=== PATIENT | female | born 1990 | race Caucasian/White ===

== ENCOUNTER 2024-03-01 22:06 | Emergency (ER) | payer OTHER, SELFPAY ==
[2024-03-01 22:14] VITALS: BP 180/116
[2024-03-01 22:32] LABS: % Basophils 0.8 % (0-2); % Eosinophils 3.4 % (0-6); % Immature Granulocytes 0.3 % (0-0.5); % Monocytes 5.7 % (1.7-9.3); % Neutrophils 45.8 % (42.2-75.2); Absolute Basophils 0.1 10^3/uL (0-0.2); Absolute Eosinophils 0.4 10^3/uL (0-0.7); Absolute Lymphocytes 5.2 10^3/uL (1.2-3.4); Absolute Monocytes 0.7 10^3/uL (0.1-0.6); Absolute Neutrophils 5.4 10^3/uL (1.4-6.5); Hematocrit 40.9 % (37.0-47.0); Hemoglobin 14.6 g/dL (12.0-16.0); Mean Corp Hgb Conc. 35.7 g/dL (33.0-37.0); Mean Corpuscular Hgb 30.1 pg (27.0-31.0); Mean Corpuscular Volume 84.3 fL (81.0-99.0); Mean Platelet Volume 10.8 fL (7.4-10.4); Nucleated Red Blood Cells % 0 %; Platelet Count 353 10^3/uL (130-400); Red Blood Cell Count 4.85 10^6/uL (4.20-5.40); Red Cell Dist. Width 12.3 % (11.5-14.5); White Blood Cell Count 11.8 10^3/uL (4.8-10.8)
[2024-03-01 22:45] LABS: ALT (SGPT) 24 U/L (0-35); AST (SGOT) 27 U/L (14-36); Albumin 4.9 g/dl (3.5-5.0); Alkaline Phosphatase 67 U/L (38-126); Blood Urea Nitrogen 11 mg/dl (7-17); Calcium 10.2 mg/dl (8.4-10.2); Carbon Dioxide 26 mmol/L (22-30); Chloride 101 mmol/L (98-107); Glucose 110 mg/dl (70-99); Potassium 3.7 mmol/L (3.5-5.1); Sodium 140 mmol/L (135-145); Total Bilirubin 0.4 mg/dl (0.2-1.3); Total Protein 7.5 g/dl (6.3-8.2); eGFR > 60.00
[2024-03-02 00:52] VITALS: BP 146/93; BP 150/92; BP 166/84; PULSE 72; PULSE 79; PULSE 87
[2024-03-02 01:00] VITALS: BP 135/78
--- NOTE | 2024-03-02 01:35 | ED.GENMED ---
History of Present Illness
General
Chief Complaint: Fainting Sensation
Source: patient
Exam Limitations: none
Time Seen by Provider: 03/02/24 01:25
Nursing documentation reviewed up to this point in time: agreed with
History of Present Illness
History of Present Illness:
33-year-old female with past medical history of hypertension, von Willebrand's disease who presents to the emergency department for evaluation of headache. Patient reports onset of symptoms while she was laying in bed sarah reports that she
was laying on her right side and she began having a sharp pain behind her left ear. She says that she started to feel muffled/hearing loss on the left. She says that she began to get dizzy and lightheaded and felt as if she might faint although
she did not pass out. She called EMS to come to the hospital. Since arriving in the hospital she says that her symptoms have improved but she still has some soreness in the left mastoid region. She does note that she has been having issues with
allergies recently and is on Flonase. She denies any change in her vision. She denies any weakness or numbness in her extremities. She denies any neck pain. She denies any nausea/vomiting. Denies any chest pain, palpitations. Denies any other
complaints. She was noted to be markedly hypertensive in triage�she has a known history of hypertension, was started on hydrochlorothiazide a week ago.
Review of Systems
Review of Systems
All Other Systems: ROS reviewed and negative except as documented in HPI and ROS
Constitutional: Denies fever
Respiratory: Denies trouble breathing
Cardiac: Denies chest pain
ABD/GI: Denies abdominal pain, nausea or vomiting
: Denies flank pain
Musculoskeletal: Denies neck pain or back pain
Neurological: Reports dizzy and headache; Denies weakness or numbness
Phy Exam
Physical Exam
Physical Exam:
General: Awake, alert, oriented x3; no acute distress
Head: Normocephalic, atraumatic
Eyes: Conjunctiva normal, EOMI, pupils equal round and reactive to light bilaterally, optic disc appears normal bilaterally on funduscopy
Ears: TMs clear bilaterally�with intention of the left ear she has no reproducible tenderness or skin changes in the region of the mastoid process
Throat: Airway intact, handling secretions
Neck: Trachea midline, supple without meningismus
Lungs: Clear to auscultation bilaterally, no wheezing, rales, rhonchi
Heart: Regular rate and rhythm, no murmurs, gallops, or rubs
Neuro: Cranial nerves intact, speech fluid, no gross motor or sensory deficits
Skin: no rash
Extremities: No edema in extremities, equal pulses in all extremities
Scores
Heart Failure Risk
Heart Failure Risk Score: Not Applicable
Heart Score for Chest Pain Patients
STEMI patient?: Not applicable
Withdrawal Assessment of Alcohol
Withdrawal Assessment Completed?: Not applicable
Course
Orders/Labs/Results
Orders:
Orders
03/01/24 22:20
ECG [Electrocardiogram (*1)] Urgent
Reason for Study: Syncope
EKG- Treatment ONCE
03/01/24 22:25
Complete Blood Count/With Diff Urgent
Comprehensive Metabolic Panel Urgent
HCG, Serum Qualitative Screen Urgent
03/02/24 01:25
Test Result ONCE
03/02/24 01:26
CT Head W/o Iv Contrast Urgent
Comment:
Reason For Exam: headache, dizzy
03/02/24 01:32
Add On- LAB Urgent
Tests Added?: HCG Qual
Abnormal Lab Results
03/01/24
22:25
WBC 11.8 H 10^3/uL
(4.8-10.8)
MPV 10.8 H fL
(7.4-10.4)
Absolute Lymphs (auto) 5.2 H 10^3/uL
(1.2-3.4)
Absolute Monos (auto) 0.7 H 10^3/uL
(0.1-0.6)
Glucose 110 H mg/dl
(70-99)
03/01/24 22:25
03/01/24 22:25
Vital Signs
Initial and Last Documented VS:
Initial Vital Signs
Temp Pulse Resp BP Pulse Ox
37.1 C 98 24 180/116 100
03/01/24 22:14 03/01/24 22:14 03/01/24 22:14 03/01/24 22:14 03/01/24 22:14
Last Documented Vital Signs
Temp Pulse Resp BP Pulse Ox
37.1 C 62 15 143/86 100
03/01/24 22:14 03/02/24 03:15 03/02/24 03:15 03/02/24 03:00 03/01/24 22:14
MDM/Problems Addressed
Differential Diagnosis Includes:
Migraine, eustachian tube dysfunction, subarachnoid hemorrhage
MDM/Problems Addressed:
33-year-old female presents for evaluation of headache associate with some dizziness prior to arrival�symptoms have greatly improved but not completely resolved. Pain mainly in the left mastoid region. Hypertensive in triage normalized by my
assessment. Rest of vitals normal. She had lab work sent in triage including a CBC and a CMP which were unremarkable. EKG shows sinus rhythm with no AV block, no Brugada, no QT prolongation. Will check CT head. Monitor closely reassess after
the above.
CT head negative, patient presented within 6 hours of symptom onset this is sufficient to rule out subarachnoid hemorrhage. Vital signs have been stable since initial triage hypertension blood pressure has improved now 143/86. Suspect likely some
eustachian tube dysfunction in the setting of recent allergy symptoms. Stable for discharge she is already on Flonase, recommended yzys-nky-miryjih allergy medications. All questions answered.
*Radiology
Radiology exam reviewed: radiology read reviewed
*Pulse Oximetry
Patient hypoxic: no
*EKG
Interpreted by ED Provider?: Yes
Heart Rate: 85
Rate: normal
Rhythm: sinus
[place]: normal axis
Interval: normal interval
QRS Pattern: normal QRS
Ischemia: non-specific ST changes
*Critical Care Note
Total Time (30-74mins, 75-104mins- exclusive of procedures): Not Applicable
Data Reviewed
Source: patient
ED Attending Note
-
Portions of this chart may have been created with voice recognition software.� Occasional wrong word or��sound alike� substitutions may have occurred due to the inherent limitations of voice recognition software.
Discharge Plan
Departure
Patient Disposition: Home (Routine Discharge)
Date of Disposition: 03/02/24
Time of Disposition: 04:11
Patient with high blood pressure during this ER visit?: Yes
Discharge Problem:
Headache
Instructions: Headaches in adults, BLOOD PRESSURE
Referrals:
Lashon Neri CRNP [Family Provider] - Follow up in 5-7 days
Activity Restrictions/Additional Instructions:
Thank you for visiting the Emergency Department at [facility].
1. Please schedule a follow up appointment as directed. Call first thing tomorrow morning to make an appointment.
2. If indicated, please take your medications as instructed and indicated on discharge paperwork.
3. If any of your symptoms do not improve, or persist, or become more severe within 6-12 hours, please return to the emergency department for further care.
4. Please return to the emergency department if you develop a headache, neck pain/stiffness, fever greater than 100.4F, chest pain, shortness of breath, persistent nausea, vomiting, slurred speech, difficulty walking, numbness/tingling, weakness,
signs of infection or any other symptoms that are worrisome to you.
Please call [phone] if you have any questions.
Interventions
Interventions:
*Risk Screen - Suicide Last Done: 03/01/24 22:14
*Neglect/Abuse Screening Last Done: 03/01/24 22:14
ED- Fall Risk Assessment Last Done: 03/02/24 00:53
*ED COVID-19 Vaccine History Last Done: 03/02/24 03:11
ED- Cardiac Assessment Last Done: 03/02/24 00:53
ED- Neurological Assessment Last Done: 03/02/24 00:53
Discharge Date and Time
Print Language: JAPANESE
[2024-03-02 02:08] LABS: HCG, Serum Qualitative Screen Negative
[2024-03-02 03:00] VITALS: BP 143/86
[2024-03-02 04:00] VITALS: BP 150/94
== END 2024-03-02 04:45 | disposition home or self-care (01) ==
LOC: EMR 22:06
PROVIDERS: Student in an Organized Health Care Education/Training Program; EMERGENCY PHYSICIAN Emergency Medicine; FAMILY PHYSICIAN Nurse Practitioner Family
DX: R51.9 Headache, unspecified (principal); R42 Dizziness and giddiness; H91.92 Unspecified hearing loss, left ear; I10 Essential (primary) hypertension; D68.00 Von Willebrand disease, unspecified; F90.9 Attention-deficit hyperactivity disorder, unspecified type; Z91.012 Allergy to eggs
CPT/HCPCS: 99284; 70450; 80053; 84703; 85025; 93005

== ENCOUNTER → 2024-03-24 08:25 | Outpatient (REF) | payer OTHER, SELFPAY | LOC: HWRAD 08:25 | PROVIDERS: ATTENDING PHYSICIAN Nurse Practitioner Family | DX: E04.9 Nontoxic goiter, unspecified (principal) | CPT/HCPCS: 76536 ==

== ENCOUNTER → 2024-03-26 12:26 | Outpatient (REF) | payer OTHER, SELFPAY | LOC: HWRCS 12:26 | PROVIDERS: ATTENDING PHYSICIAN Nurse Practitioner Family | DX: R01.1 Cardiac murmur, unspecified (principal) | CPT/HCPCS: 93306 ==

== ENCOUNTER 2024-03-30 13:18 | Emergency (ER) | payer OTHER, SELFPAY ==
[2024-03-30 13:24] VITALS: BP 161/110
--- NOTE | 2024-03-30 13:34 | ED.GENMED ---
ED Provider Triage
<Neo Villar PA-C - Last Filed: 03/30/24 13:37>
-
Patient seen by provider in Triage?: Seen in Triage
Attestation: A medical screening examination has been initiated by a qualified medical provider. Based on the assessment performed at this time, it has been determined that an emergent medical condition may exist and the patient has been informed
that further medical evaluation and possible additional diagnostic testing may be needed.
HPI: 33-year-old female presents the emergency department for evaluation of chest discomfort and shortness of breath developing this morning. Due to heart palpitations and a heart murmur she underwent an echocardiogram 4 days ago that was
unremarkable from a cardiac standpoint however did show a left pleural effusion. She has minimal pain at rest but feels as though she cannot take a deep breath. No pleuritic pain. Denies any pain when supine
GENERAL: Alert , in no apparent distress
EYE: No visual abnormalities.
NECK: Trachea midline
ENT: No visible abnormalities.
LUNGS: No acute respiratory distress
NEUROLOGICAL: Alert and oriented
SKIN: Skin intact. No visible changes.
MUSCULOSKELETAL: Moving extremities normally
PSYCH: Normal and appropriate interaction.
A/P: Will check chest x-ray due to presence of the pleural effusion seen on echo 4 days ago. Consider pulmonary embolism particularly if the pleural effusion is not significant
This is a medical evaluation conducted in person to initiate diagnostic evaluation and provide initial therapeutics. Please see further documentation by the treating clinician.
History of Present Illness
<Neo Villar PA-C - Last Filed: 03/30/24 13:37>
General
Chief Complaint: Chest Pain
Time Seen by Provider: 03/30/24 14:27
<Ankur Michaud Jr., PA-C - Last Filed: 03/30/24 16:17>
General
Source: patient, spouse and family
Exam Limitations: none
Nursing documentation reviewed up to this point in time: agreed with
History of Present Illness
History of Present Illness:
33-year-old female past medical history of arrhythmia, von Willebrand disease ADHD presenting to the emergency department today with concerns of chest pain shortness of breath that occurred while walking in [employer] prior to arrival. Symptoms have
improved since onset an hour prior to but is not fully gone. Has been having outpatient workup for palpitations and PVCs over the past month or so. Had a recent echo that showed a small pleural effusion but no emergent findings otherwise. Denies
any recent trauma surgery immobilization, leg swelling.
Review of Systems
<Ankur Michaud Jr., PA-C - Last Filed: 03/30/24 16:17>
Review of Systems
Allergies reviewed?: Yes
All Other Systems: ROS reviewed and negative except as documented in HPI and ROS
Phy Exam
<Ankur Michaud Jr., PA-C - Last Filed: 03/30/24 16:17>
Physical Exam
Physical Exam:
GENERAL: Alert , in no apparent distress
EYE: pupils equal and reactive
NECK: Supple, no significant adenopathy.
ENT: o/p clr, mmm.
CARDIAC: Regular rate and rhythm .
LUNGS: Clear breath sounds bilaterally, no acute respiratory distress, no wheezes/rales/rhonchi
ABDOMEN: Soft, without focal tenderness, no r/g, no cvat
NEUROLOGICAL: Alert and oriented, no focal neuro deficits
SKIN: Warm and dry, skin intact.
MUSCULOSKELETAL: No edema, well perfused.
PSYCH: Normal and appropriate interaction.
Scores
<Ankur Michaud Jr., PA-C - Last Filed: 03/30/24 16:17>
Heart Score for Chest Pain Patients
STEMI patient?: No
History: Slightly or Non-Suspicious
ECG: Normal
Age: </= 45 years
Risk Factors: 1 or 2 Risk Factors
Troponin: </= Normal Limit
Heart Score for Chest Pain Patients: 1
Heart Score Risk: 2.5% MACE over next 6 weeks
Course
<Neo Villar PA-C - Last Filed: 03/30/24 13:37>
Orders/Labs/Results
Orders:
Orders
03/30/24 13:19
Electrocardiogram (*1) Urgent
Reason for Study: Chest Pain
EKG- Treatment ONCE
03/30/24 13:32
CR Chest - 2 Views Urgent
Comment:
Reason For Exam: L pleural effusion
03/30/24 14:03
Test Result ONCE
03/30/24 14:07
Complete Blood Count/With Diff Urgent
Comprehensive Metabolic Panel Urgent
D-Dimer Urgent
HCG, Serum Qualitative Screen Urgent
03/30/24 14:58
Troponin I Urgent
Abnormal Lab Results
03/30/24
14:07
MPV 10.5 H fL
(7.4-10.4)
Absolute Lymphs (auto) 4.0 H 10^3/uL
(1.2-3.4)
Albumin 5.1 H g/dl
(3.5-5.0)
03/30/24 14:07
03/30/24 14:07
Vital Signs
Initial and Last Documented VS:
Initial Vital Signs
Temp Pulse Resp BP Pulse Ox
98.0 F 110 20 161/110 100
03/30/24 13:24 03/30/24 13:24 03/30/24 13:24 03/30/24 13:24 03/30/24 13:24
Last Documented Vital Signs
Temp Pulse Resp BP Pulse Ox
98.0 F 92 20 166/107 98
03/30/24 13:24 03/30/24 14:45 03/30/24 14:45 03/30/24 14:45 03/30/24 14:45
<Ankur Michaud Jr., PA-C - Last Filed: 03/30/24 16:17>
Orders/Labs/Results
Orders:
Orders
03/30/24 13:19
Electrocardiogram (*1) Urgent
Reason for Study: Chest Pain
EKG- Treatment ONCE
03/30/24 13:32
CR Chest - 2 Views Urgent
Comment:
Reason For Exam: L pleural effusion
03/30/24 14:03
Test Result ONCE
03/30/24 14:07
Complete Blood Count/With Diff Urgent
Comprehensive Metabolic Panel Urgent
D-Dimer Urgent
HCG, Serum Qualitative Screen Urgent
03/30/24 14:58
Troponin I Urgent
Abnormal Lab Results
03/30/24
14:07
MPV 10.5 H fL
(7.4-10.4)
Absolute Lymphs (auto) 4.0 H 10^3/uL
(1.2-3.4)
Albumin 5.1 H g/dl
(3.5-5.0)
03/30/24 14:07
03/30/24 14:07
Vital Signs
Initial and Last Documented VS:
Initial Vital Signs
Temp Pulse Resp BP Pulse Ox
98.0 F 110 20 161/110 100
03/30/24 13:24 03/30/24 13:24 03/30/24 13:24 03/30/24 13:24 03/30/24 13:24
Last Documented Vital Signs
Temp Pulse Resp BP Pulse Ox
98.0 F 92 20 166/107 98
03/30/24 13:24 03/30/24 14:45 03/30/24 14:45 03/30/24 14:45 03/30/24 14:45
<Ankur Michaud Jr., PA-C - Last Filed: 03/30/24 16:17>
MDM/Problems Addressed
MDM/Problems Addressed:
34-year-old female presenting to the emergency department today with concerns of chest tightness shortness of breath that started while walking at [employer] prior to arrival. Symptoms have improved since. Upon arrival here patient was hypertensive
but otherwise vital signs are normal. Blood pressure improved without specific treatment. Otherwise labs unremarkable troponin negative D-dimer negative PE very unlikely with negative D-dimer heart strain very unlikely with negative troponin which
was ordered at least 3 hours after symptoms are maximal. Chest x-ray without acute abnormalities EKG without emergent findings. Patient does appear stable for close outpatient follow-up with cardiology. Return precautions given.
<Ankur Michaud Jr., PA-C - Last Filed: 03/30/24 16:17>
*Critical Care Note
Total Time (30-74mins, 75-104mins- exclusive of procedures): Not Applicable
ED Attending Note
<Neo Villar PA-C - Last Filed: 03/30/24 13:37>
-
Portions of this chart may have been created with voice recognition software.� Occasional wrong word or��sound alike� substitutions may have occurred due to the inherent limitations of voice recognition software.
Discharge Plan
Departure
Patient Disposition: Home (Routine Discharge)
Date of Disposition: 03/30/24
Time of Disposition: 16:13
Patient with high blood pressure during this ER visit?: No
Condition: Good
Covid-19: Not Applicable
Discharge Problem:
Chest pain
Instructions: Chest Pain CBC Follow Up
Referrals:
Lashon Neri CRNP [Family Provider] -
Activity Restrictions/Additional Instructions:
You came to the emergency department today with concerns of shortness of breath and chest pain. Here you have a reassuring assessment. Please read closely with cardiology within 1 week. Return to the emergency department for any worsening, new or
concerning symptoms.
Interventions
Interventions:
*Risk Screen - Suicide Last Done: 03/30/24 13:24
*Neglect/Abuse Screening Last Done: 03/30/24 13:24
ED- Fall Risk Assessment Last Done: 03/30/24 15:00
*ED COVID-19 Vaccine History Last Done: 03/30/24 13:24
ED- Cardiac Assessment Last Done: 03/30/24 15:00
Discharge Date and Time
Print Language: CHINESE
[2024-03-30 14:14] LABS: % Basophils 1.3 % (0-2); % Eosinophils 3.4 % (0-6); % Immature Granulocytes 0.2 % (0-0.5); % Lymphocytes 42.1 % (20.5-51.1); Absolute Basophils 0.1 10^3/uL (0-0.2); Absolute Eosinophils 0.3 10^3/uL (0-0.7); Absolute Monocytes 0.5 10^3/uL (0.1-0.6); Absolute Neutrophils 4.5 10^3/uL (1.4-6.5); Hematocrit 43.6 % (37.0-47.0); Hemoglobin 15.6 g/dL (12.0-16.0); Mean Corp Hgb Conc. 35.8 g/dL (33.0-37.0); Mean Corpuscular Hgb 30.4 pg (27.0-31.0); Mean Corpuscular Volume 84.8 fL (81.0-99.0); Mean Platelet Volume 10.5 fL (7.4-10.4); Nucleated Red Blood Cells % 0 %; Platelet Count 386 10^3/uL (130-400); Red Blood Cell Count 5.14 10^6/uL (4.20-5.40); Red Cell Dist. Width 13.1 % (11.5-14.5); White Blood Cell Count 9.4 10^3/uL (4.8-10.8)
[2024-03-30 14:27] LABS: HCG, Serum Qualitative Screen Negative
[2024-03-30 14:32] LABS: ALT (SGPT) 18 U/L (0-35); AST (SGOT) 22 U/L (14-36); Albumin 5.1 g/dl (3.5-5.0); Alkaline Phosphatase 53 U/L (38-126); Blood Urea Nitrogen 10 mg/dl (7-17); Carbon Dioxide 22 mmol/L (22-30); Chloride 104 mmol/L (98-107); Glucose 93 mg/dl (70-99); Sodium 141 mmol/L (135-145); Total Bilirubin 0.4 mg/dl (0.2-1.3); Total Protein 7.7 g/dl (6.3-8.2); eGFR > 60.00
[2024-03-30 14:45] VITALS: BP 166/107
[2024-03-30 15:04] LABS: D-Dimer < 0.27 ug/mlFEU (0.00-0.50)
[2024-03-30 15:32] LABS: Troponin I < 0.012 ng/ml
== END 2024-03-30 16:31 | disposition home or self-care (01) ==
LOC: EMR 13:18
PROVIDERS: Physician Assistant; EMERGENCY PHYSICIAN Emergency Medicine; FAMILY PHYSICIAN Nurse Practitioner Family
DX: R07.89 Other chest pain (principal); R06.02 Shortness of breath
CPT/HCPCS: 99285; 71046; 80053; 84484; 84703; 85025; 85379; 93005

== ENCOUNTER → 2024-04-28 08:12 | Outpatient (REF) | payer OTHER, SELFPAY | LOC: RCS 08:12 | PROVIDERS: ATTENDING PHYSICIAN Internal Medicine Cardiovascular Disease; FAMILY PHYSICIAN Nurse Practitioner Family | DX: R00.2 Palpitations (principal) | CPT/HCPCS: 93225; 93226 ==

== ENCOUNTER 2024-05-28 17:07 | Emergency (ER) | payer OTHER, SELFPAY ==
[2024-05-28 17:35] VITALS: BP 140/101
--- NOTE | 2024-05-28 17:36 | ED.GENMED ---
ED Provider Triage
<Perri Salvador, WEB MARKETING ANALYST - Last Filed: 05/28/24 17:43>
-
Patient seen by provider in Triage?: Seen in Triage
Attestation: A medical screening examination has been initiated by a qualified medical provider. Based on the assessment performed at this time, it has been determined that an emergent medical condition may exist and the patient has been informed
that further medical evaluation and possible additional diagnostic testing may be needed.
HPI: 33-year-old female with history of HTN, ADHD, PVCs, von Willebrand's, presents for LUQ abdominal pain / radiating down entire left abdomen, and palpitations denies CP, SOB.
HR in Triage 130's -140's
GENERAL: Alert , in no apparent distress
EYE: No visual abnormalities.
NECK: Trachea midline
ENT: No visible abnormalities.
LUNGS: No acute respiratory distress
NEUROLOGICAL: Alert and oriented
SKIN: Skin intact. No visible changes.
MUSCULOSKELETAL: Moving extremities normally
PSYCH: Normal and appropriate interaction.
This is a medical evaluation conducted in person to initiate diagnostic evaluation and provide initial therapeutics. Please see further documentation by the treating clinician.
History of Present Illness
<Perri Salvador, WEB MARKETING ANALYST - Last Filed: 05/28/24 17:43>
General
Chief Complaint: Abdominal Pain
Time Seen by Provider: 05/28/24 22:35
<Lenin Prescott DO - Last Filed: 05/29/24 01:56>
History of Present Illness
History of Present Illness:
TIME OF INITIAL ENCOUNTER: 10:40 PM
HPI: Patient presents with left-sided abdominal discomfort along with sensation of racing heart. The left-sided abdominal pain has been going on for the past 5 hours or so. She states that her heart rate is chronically elevated and usually around
the 110 range. She states she has a history of von Willebrand's. She states she has been on Macrobid for a urinary tract infection and has 2 more doses.
EXAM:
GENERAL: Well appearing in no distress
HEENT: Moist oral mucosa
CARDIOVASCULAR: No murmurs, tachycardic heart rate, regular rhythm, No chest wall tenderness
PULMONARY: No respiratory distress, breath sounds are clear and equal
ABDOMEN: Soft with no peritoneal signs, mild left-sided abdominal tenderness
NEUROLOGIC: Excellent strength all extremities, no coordination deficits
PSYCHIATRIC: Appropriate mental status, normal insight and judgement
EXTREMITIES: Nontender, no edema, moves all extremities equally
SKIN: No rash, no lesions
NUMBER AND COMPLEXITY OF PROBLEMS ADDRESSED AT THE ENCOUNTER
� Chronic conditions affecting care: History of TBI, history of 'arrhythmia'�per patient describes chronic tachycardia on nifedipine
� Acute Exacerbation and/or Progression of Chronic Illness: This is an acute problem
� Differential Diagnosis includes: Anxiety, GERD, diverticulitis, PE, colitis, IBS, IBD, UTI
AMOUNT AND/OR COMPLEXITY OF DATA TO BE REVIEWED AND ANALYZED
� I performed an independent evaluation of and my interpretation is:
EKG: Sinus 122, normal axis, nonspecific ST abnormality
CT: CT imaging shows no acute abnormality
X-rays:
Laboratory Studies: Urinalysis shows 1+ leukocyte esterase, white count normal, hemoglobin normal, D-dimer less than 0.27, bicarb is 18, glucose 172, LFTs and lipase unremarkable, TSH normal, troponin negative, hCG negative
Other:
� Review of other/old records: The patient was seen here in March with chest discomfort and at that time troponin negative
� Clinical information was obtained by an independent historian: None needed
� Prescriptions/Medications Considered but not given:
� Further testing considered but not performed:
RISK OF COMPLICATIONS AND/OR MORBIDITY OR MORTALITY OF PATIENT MANAGEMENT
� Social determinants of health affecting care: Lives at home
� Discussion with other providers:
� Escalation of care including admission/observation vs risk of discharge considered: The patient was given a liter of IV fluids as well as a dose of Toradol.
ANY OTHER UPDATES:
1:55 AM: On reassessment, heart rate has improved. CT imaging reassuring and lab work also unremarkable. He reports overall improvement after fluids and Toradol were given. Although she does have some concern with taking NSAIDs in the setting of
von Willebrand's, I suggest that she could maybe take very rare intermittent dosing of ibuprofen.
Phy Exam
<Lenin Prescott, DO - Last Filed: 05/29/24 01:56>
Physical Exam
Physical Exam:
See HPI
Course
<Perri Salvador, WEB MARKETING ANALYST - Last Filed: 05/28/24 17:43>
Orders/Labs/Results
Orders:
Orders
05/28/24 17:38
Test Result ONCE
05/28/24 17:40
Electrocardiogram (*1) Urgent
Reason for Study: Chest Pain
05/28/24 17:41
EKG- Treatment ONCE
05/28/24 17:50
Complete Blood Count/With Diff Urgent
Comprehensive Metabolic Panel Urgent
D-Dimer Urgent
HCG, Serum Qualitative Screen Urgent
Lipase Urgent
TSH Reflex To Free T4 Urgent
Troponin I Urgent
05/28/24 22:15
Urinalysis Reflex To Culture Urgent
Date Specimen was Collected: 05/28/24
Time Specimen was Collected: 22:10
Urine Microscopic Reflex Cult Urgent
Urine Culture Urgent
BECKY Source: U
Specimen Description:
Date Specimen was Collected: 05/28/24
Time Specimen was Collected: 22:10
05/28/24 22:41
0.9% Sodium Chloride 1000 ml [Nss] 1,000 ml IV BOLUS
Ketorolac [Toradol] 15 mg IV NOW STA
05/29/24 01:00
CT Abd/pelvis W Iv Cont Urgent
Reason For Exam: left pain
Abnormal Lab Results
05/28/24 05/28/24
17:50 22:15
MPV 11.0 H fL
(7.4-10.4)
Absolute Lymphs (auto) 3.6 H 10^3/uL
(1.2-3.4)
Carbon Dioxide 18 L mmol/L
(22-30)
Creatinine 0.5 L mg/dL
(0.6-1.0)
Glucose 172 H mg/dl
(70-99)
Albumin 5.2 H g/dl
(3.5-5.0)
Leukocyte Esterase Rfl 1+ A
(Negative)
Urine Bacteria (Reflex) Many A
(Negative)
05/28/24 17:50
05/28/24 17:50
Vital Signs
Initial and Last Documented VS:
Initial Vital Signs
Temp Pulse Resp BP Pulse Ox
36.8 C 143 20 140/101 98
05/28/24 17:35 05/28/24 17:35 05/28/24 17:35 05/28/24 17:35 05/28/24 17:35
Last Documented Vital Signs
Temp Pulse Resp BP Pulse Ox
36.9 C 77 19 126/76 100
05/28/24 22:23 05/29/24 01:00 05/29/24 01:00 05/29/24 01:00 05/28/24 21:43
Orvillelt;Lenin Prescott DO - Last Filed: 05/29/24 01:56>
Orders/Labs/Results
Orders:
Orders
05/28/24 17:38
Test Result ONCE
05/28/24 17:40
Electrocardiogram (*1) Urgent
Reason for Study: Chest Pain
05/28/24 17:41
EKG- Treatment ONCE
05/28/24 17:50
Complete Blood Count/With Diff Urgent
Comprehensive Metabolic Panel Urgent
D-Dimer Urgent
HCG, Serum Qualitative Screen Urgent
Lipase Urgent
TSH Reflex To Free T4 Urgent
Troponin I Urgent
05/28/24 22:15
Urinalysis Reflex To Culture Urgent
Date Specimen was Collected: 05/28/24
Time Specimen was Collected: 22:10
Urine Microscopic Reflex Cult Urgent
Urine Culture Urgent
BECKY Source: U
Specimen Description:
Date Specimen was Collected: 05/28/24
Time Specimen was Collected: 22:10
05/28/24 22:41
0.9% Sodium Chloride 1000 ml [Nss] 1,000 ml IV BOLUS
Ketorolac [Toradol] 15 mg IV NOW STA
05/29/24 01:00
CT Abd/pelvis W Iv Cont Urgent
Reason For Exam: left pain
Abnormal Lab Results
05/28/24 05/28/24
17:50 22:15
MPV 11.0 H fL
(7.4-10.4)
Absolute Lymphs (auto) 3.6 H 10^3/uL
(1.2-3.4)
Carbon Dioxide 18 L mmol/L
(22-30)
Creatinine 0.5 L mg/dL
(0.6-1.0)
Glucose 172 H mg/dl
(70-99)
Albumin 5.2 H g/dl
(3.5-5.0)
Leukocyte Esterase Rfl 1+ A
(Negative)
Urine Bacteria (Reflex) Many A
(Negative)
05/28/24 17:50
05/28/24 17:50
Vital Signs
Initial and Last Documented VS:
Initial Vital Signs
Temp Pulse Resp BP Pulse Ox
36.8 C 143 20 140/101 98
05/28/24 17:35 05/28/24 17:35 05/28/24 17:35 05/28/24 17:35 05/28/24 17:35
Last Documented Vital Signs
Temp Pulse Resp BP Pulse Ox
36.9 C 77 19 126/76 100
05/28/24 22:23 05/29/24 01:00 05/29/24 01:00 05/29/24 01:00 05/28/24 21:43
<Lenin Prescott DO - Last Filed: 05/29/24 01:56>
*Critical Care Note
Total Time (30-74mins, 75-104mins- exclusive of procedures): Not Applicable
ED Attending Note
<Perri Salvador WEB MARKETING ANALYST - Last Filed: 05/28/24 17:43>
-
Portions of this chart may have been created with voice recognition software.� Occasional wrong word or��sound alike� substitutions may have occurred due to the inherent limitations of voice recognition software.
Discharge Plan
Departure
Prescriptions:
No Action
nifedipine 30 mg Tablet Extended Release 24hr
30 mg PO DAILY
etonogestrel-ethinyl estradiol [NuvaRing] 0.12-0.015 mg/24 hr Ring
1 vag ring VAGINAL Q4W
atomoxetine [Strattera] 40 mg Capsule
40 mg PO DAILY
nitrofurantoin monohyd/m-cryst [Macrobid] 100 mg Capsule
100 mg PO BID
Referrals:
Lashon Neri CRNP [Family Provider] -
Interventions
Interventions:
*Risk Screen - Suicide Last Done: 05/28/24 17:35
*General Assessment Last Done: 05/28/24 22:11
*Neglect/Abuse Screening Last Done: 05/28/24 17:35
*ED COVID-19 Vaccine History Last Done: 05/28/24 22:11
ZN-Iphsgs-Ezjkooxohh Assessment Last Done: 05/28/24 22:23
Discharge Date and Time
Print Language: GERMAN
[2024-05-28 18:22] LABS: % Basophils 1.3 % (0-2); % Eosinophils 2.7 % (0-6); % Immature Granulocytes 0.2 % (0-0.5); % Lymphocytes 40.8 % (20.5-51.1); % Monocytes 4.6 % (1.7-9.3); % Neutrophils 50.4 % (42.2-75.2); Absolute Basophils 0.1 10^3/uL (0-0.2); Absolute Eosinophils 0.2 10^3/uL (0-0.7); Absolute Lymphocytes 3.6 10^3/uL (1.2-3.4); Absolute Monocytes 0.4 10^3/uL (0.1-0.6); Absolute Neutrophils 4.4 10^3/uL (1.4-6.5); Hematocrit 44.2 % (37.0-47.0); Mean Corp Hgb Conc. 36.2 g/dL (33.0-37.0); Mean Corpuscular Hgb 30.4 pg (27.0-31.0); Mean Corpuscular Volume 83.9 fL (81.0-99.0); Nucleated Red Blood Cells % 0 %; Platelet Count 391 10^3/uL (130-400); Red Blood Cell Count 5.27 10^6/uL (4.20-5.40); Red Cell Dist. Width 12.7 % (11.5-14.5); White Blood Cell Count 8.7 10^3/uL (4.8-10.8)
[2024-05-28 18:36] LABS: HCG, Serum Qualitative Screen Negative
[2024-05-28 18:39] LABS: ALT (SGPT) 19 U/L (0-35); AST (SGOT) 20 U/L (14-36); Albumin 5.2 g/dl (3.5-5.0); Alkaline Phosphatase 68 U/L (38-126); Blood Urea Nitrogen 10 mg/dl (7-17); Carbon Dioxide 18 mmol/L (22-30); Chloride 107 mmol/L (98-107); D-Dimer < 0.27 ug/mlFEU (0.00-0.50); Glucose 172 mg/dl (70-99); Potassium 4.2 mmol/L (3.5-5.1); Sodium 143 mmol/L (135-145); Total Bilirubin 0.2 mg/dl (0.2-1.3); eGFR > 60.00
[2024-05-28 19:13] LABS: TSH Reflex To Free T4 0.95 uIU/ml (0.47-4.68)
[2024-05-28 19:16] LABS: Troponin I < 0.012 ng/ml
[2024-05-28 19:36] LABS: Lipase 118 U/L (23-300)
[2024-05-28 21:43] VITALS: BP 148/100
[2024-05-28 22:11] VITALS: BMI 29.7
--- NOTE | 2024-05-28 22:15 | EDRN ---
About 6 hours ago, pt developed throbbing pressure sensation in L side of her abdomen which caused her to feel dizzy and she developed palpitations. Pt took pepcid complete and tylenol which did not help. Dizziness and palpitations are gone. Abd
pain with nausea is constant. Pain feels better when pt sits up and leans over. No vomiting, fever/chills/cough, cp, sob, urinary symptoms however pt is on macrobid for uti. No flank pain.
[2024-05-28 22:22] VITALS: BP 146/84
[2024-05-28 22:29] LABS: Urine Albumin Negative (Neg - Trace); Urine Bilirubin Negative (Negative); Urine Character Clear (Clear); Urine Color Yellow; Urine Glucose Negative (Negative); Urine Ketone Negative (Negative); Urine Leukocyte 1+ (Negative); Urine Nitrite Negative (Negative); Urine Occult Blood Negative (Negative); Urine Urobilinogen Negative (Neg - 1+)
[2024-05-28 22:35] LABS: Urine Mucus Few
[2024-05-28 22:36] LABS: Urine Bacteria Many (Negative); Urine Red Blood Cell 0-2 /HPF (0-2)
[2024-05-28] MEDS: NSS 1000 IV (22:56)
[2024-05-28] MEDS: TORADOL 15 MG IV (22:58)
[2024-05-28 23:00] VITALS: BP 128/86
[2024-05-29] VITALS: BP 131/77
[2024-05-29 01:00] VITALS: BP 126/76
[2024-05-29 02:00] VITALS: BP 120/71
== END 2024-05-29 02:20 | disposition home or self-care (01) ==
LOC: EMR 17:07
PROVIDERS: Emergency Medicine; Registered Nurse; EMERGENCY PHYSICIAN Emergency Medicine; FAMILY PHYSICIAN Nurse Practitioner Family
DX: R10.12 Left upper quadrant pain (principal); R00.2 Palpitations; I10 Essential (primary) hypertension; F90.9 Attention-deficit hyperactivity disorder, unspecified type; I49.3 Ventricular premature depolarization; D68.00 Von Willebrand disease, unspecified
CPT/HCPCS: 99284; 96374; 96361; 74177; 80053; 81003; 81015; 83690; 84443; 84484; 84703; 85025; 85379; 87086; 93005; Q9967

== ENCOUNTER → 2024-09-14 13:49 | Outpatient (REF) | payer OTHER, SELFPAY | LOC: HWRAD 13:49 | PROVIDERS: ATTENDING PHYSICIAN Nurse Practitioner Family | DX: R10.9 Unspecified abdominal pain (principal); E04.9 Nontoxic goiter, unspecified | CPT/HCPCS: 76536; 76775 ==

== ENCOUNTER → 2024-10-05 07:42 | Outpatient (REF) | payer OTHER, SELFPAY | LOC: HWRAD 07:42 | PROVIDERS: ATTENDING PHYSICIAN Nurse Practitioner Family | DX: R10.2 Pelvic and perineal pain (principal) | CPT/HCPCS: 76830; 76856 ==

== ENCOUNTER 2024-11-30 14:57 | Outpatient (RCR) | payer OTHER, SELFPAY | END 2024-11-30 23:59 | disposition home or self-care (01) | LOC: RPT 14:57 | PROVIDERS: ATTENDING PHYSICIAN Nurse Practitioner Family | DX: N94.10 Unspecified dyspareunia (principal); N39.3 Stress incontinence (female) (male); K59.00 Constipation, unspecified; M62.81 Muscle weakness (generalized); Z73.6 Limitation of activities due to disability | CPT/HCPCS: 97110; 97140; 97163; 97530 ==

== ENCOUNTER 2025-01-18 13:46 | Outpatient (RCR) | payer OTHER, SELFPAY | END 2025-01-18 23:59 | disposition home or self-care (01) | LOC: RPT 13:46 | PROVIDERS: ATTENDING PHYSICIAN Nurse Practitioner Family | DX: N94.10 Unspecified dyspareunia (principal); N39.3 Stress incontinence (female) (male); K59.00 Constipation, unspecified; M62.81 Muscle weakness (generalized); Z73.6 Limitation of activities due to disability | CPT/HCPCS: 97014; 97110; 97112; 97140; 97530 ==

== ENCOUNTER → 2025-03-30 13:17 | Outpatient (REF) | payer OTHER, SELFPAY | LOC: RCS 13:17 | PROVIDERS: ATTENDING PHYSICIAN Nurse Practitioner Family | DX: M54.2 Cervicalgia (principal) | CPT/HCPCS: 93017; 93350 ==